=== PATIENT | male | born 1955 | race Caucasian/White ===

== ENCOUNTER 2019-12-21 00:20 | Emergency (ER) | payer MEDICARE ==
[~2019-12-21] VITALS: Ht 175.3 cm; Wt 91.7 kg
[2019-12-21 00:23] VITALS: BP 121/86
== END 2019-12-21 01:22 | disposition home or self-care (01) ==
LOC: ED 01:00
DX: F45.8 Other somatoform disorders (principal); R06.00 Dyspnea, unspecified; R94.31 Abnormal electrocardiogram [ECG] [EKG]
CPT/HCPCS: 93005; 99283

== ENCOUNTER → 2019-12-26 | Outpatient (CLI) | payer MEDICARE | END | disposition home or self-care (01) | LOC: CFH 11:15 | PROVIDERS: ATTEND Physician Assistant | DX: K76.89 Other specified diseases of liver (principal); K74.00 Hepatic fibrosis, unspecified | CPT/HCPCS: 76705 ==

== ENCOUNTER 2020-06-14 07:03 | Outpatient (CLI) | payer MEDICARE | END 2020-06-14 23:59 | disposition home or self-care (01) | LOC: CFH 07:03 | PROVIDERS: ATTEND Physician Assistant | DX: K76.89 Other specified diseases of liver (principal); K74.00 Hepatic fibrosis, unspecified | CPT/HCPCS: 76705 ==